=== PATIENT | male | born 1995 | race Caucasian/White ===

== ENCOUNTER 2022-11-06 16:54 | Emergency (ER) | payer SELFPAY ==
[~2022-11-06] VITALS: Ht 188 cm; Wt 100.0 kg
[2022-11-06 17:00] VITALS: BP 128/85
== END 2022-11-06 20:19 | disposition left against medical advice (07) ==
LOC: ER 16:59
DX: F91.8 Other conduct disorders (principal); F15.10 Other stimulant abuse, uncomplicated
CPT/HCPCS: 93005; 99283